=== PATIENT | female | born 1975 | race Caucasian/White ===

== ENCOUNTER → 2024-05-31 | Outpatient (CLI) | payer BC ==
[~2024-05-31] MED LIST: Iohexol 300 - 100 ML VIAL IV ONE
== END ==
LOC: RAD 13:50
DX: C91.Z0 Other lymphoid leukemia not having achieved remission (principal); R91.8 Other nonspecific abnormal finding of lung field; R91.1 Solitary pulmonary nodule; R59.0 Localized enlarged lymph nodes
CPT/HCPCS: Q9967